=== PATIENT | female | born 1985 | race Caucasian/White ===

== ENCOUNTER 2016-06-14 15:01 | Emergency (ER) | payer SELFPAY ==
[~2016-06-14] VITALS: Ht 160 cm; Wt 70.3 kg
[2016-06-14 15:17] VITALS: BP 118/71
[2016-06-14] MEDS ORDERED: DICY10CA53 PO (15:47)
[2016-06-14] MEDS ORDERED: SULF1TAB24 PO (15:47)
[2016-06-14] MEDS ORDERED: PROM25TA10 PO (15:47)
[2016-06-14] MEDS ORDERED: MUPI22OI2 TP (15:47)
--- NOTE | 2016-06-14 15:47 | PHYS DOC ---
Past Medical History Past Medical History: No Pertinent History Past Surgical History: Other Additional Past Surgical Histo: UTERINE ABLATION Additional Information: 1 PPD Alcohol Use: None Drug Use: None Adult General Chief Complaint Chief Complaint: SKIN PROBLEM HPI HPI Patient is a 30 year old female presents emergency department for 2 reasons: 1. Skin rash that involves her bilateral lower extremities trunk and right upper extremity that began approximately 3 days ago. Patient states that she had a new tattoo within the past week. She states is been some redness and inflammation around the tattoo to her right thigh and then subsequently developed this secondary rash. Patient denies any history of recurrent skin infections. She denies antibiotic use within the past 90 days. 2. Nausea, vomiting and diarrhea that began yesterday. Patient denies any history gastrointestinal disease. Patient denies any known exposure to others with similar symptoms. Again, patient denies antibiotic use the past 90 days. She also denies hospitalization or foreign travel within the past 90 days. Patient denies hematemesis, hematochezia or abdominal pain. Review of Systems Review of Systems Constitutional: Denies fever or chills [] Eyes: Denies change in visual acuity, redness, or eye pain [] HENT: Denies nasal congestion or sore throat [] Respiratory: Denies cough or shortness of breath [] Cardiovascular: No additional information not addressed in HPI [] GI: Denies abdominal pain, nausea, vomiting, bloody stools or diarrhea [] : Denies dysuria or hematuria [] Musculoskeletal: Denies back pain or joint pain [] Integument: Denies rash or skin lesions [] Neurologic: Denies headache, focal weakness or sensory changes [] Endocrine: Denies polyuria or polydipsia [] Allergies Allergies Allergies Coded Allergies Type Severity Reaction Last Updated Verified morphine Allergy Mild NAUSEA,RASH 06/14/16 Yes Physical Exam Physical Exam Constitutional: Well developed, well nourished, no acute distress, non-toxic appearance. HENT: Normocephalic, atraumatic, bilateral external ears normal, oropharynx moist, no oral exudates, nose normal. Mucous membranes in the mouth and throat are healthy, pink and moist. Eyes: PERRLA, EOMI, conjunctiva normal, no discharge. [] Neck: Normal range of motion, no tenderness, supple, no stridor. [] Cardiovascular:Heart rate regular rhythm, no murmur Lungs & Thorax: Bilateral breath sounds clear to auscultation Abdomen: Abdomen is soft and nondistended. There are hyperactive bowel sounds in all 4 quadrants. There is no palpable defect to the abdominal wall or pulsatile mass. There is no focal area of tenderness. There is no rebound or guarding. Skin: Patient with large tattoo to the lateral aspect of her right thigh. There is significant amount of epidermal sloughing. There are follicular eruptions within the tattoo into bilateral lower extremities. There is some involvement with the lower anterior trunk and bilateral forearms. There is no mucocutaneous involvement. There are no other differing lesions such as petechial or purpuric patches. Back: No tenderness, no CVA tenderness. [] Extremities: No tenderness, no cyanosis, no clubbing, ROM intact, no edema. [] Neurologic: Alert and oriented X 3, normal motor function, normal sensory function, no focal deficits noted. [] Psychologic: Affect normal, judgement normal, mood normal. [] Current Patient Data Vital Signs Vital Signs Date Time Temp Pulse Resp B/P Pulse Ox O2 Delivery O2 Flow Rate FiO2 06/14/16 15:17 98.4 97 20 118/71 99 Room Air 98.4 EKG EKG [] Radiology/Procedures Radiology/Procedures [] Course & Med Decision Making Course & Med Decision Making Pertinent Labs and Imaging studies reviewed. (See chart for details) [] Dragon Disclaimer Dragon Disclaimer This electronic medical record was generated, in whole or in part, using a voice recognition dictation system. Departure Departure Impression: Primary Impression: Folliculitis Additional Impression: Gastroenteritis Disposition: 01 HOME, SELF-CARE Condition: GOOD Referrals: ROXANNE CORREA (PCP) Patient Instructions: Folliculitis, Viral Gastroenteritis, [id number] Additional Instructions: 1. Take the medication as prescribed. 2. Clear liquid diet for the next 24 hours. Avoid caffeinated beverages. Ideally , he should drink 10-12, 10 ounce glasses of non-caffeinated beverage daily while you're ill. A half and half mixture of water and Gatorade or Powerade will help replenish electrolytes in your body as well. You may also choose to drink Pedialyte. 3. Review the discharge instructions provided for reasons to return the emergency department. 4. Follow-up if you believe that either condition is worsening. Scripts Dicyclomine Hcl (Bentyl)10 Mg Capsule1 Cap PO TID abdominal cramping #21 CAP Prov:MARCELINA ESTRELLA 06/14/16 Promethazine Hcl 25 Mg Tablet1 Tab PO PRN Q6HRS PRN nausea and vomiting #20 TAB Prov:MARCELINA ESTRELLA 06/14/16 Mupirocin (Mupirocin Ointment)22 Gm Oint...g.1 Moustapha TP TID antibiotic ointment fortattoo #1 TUBE Prov:MARCELINA ESTRELLA 06/14/16 Sulfamethoxazole/Trimethoprim (Bactrim Ds Tablet)1 Each Tablet1 Each PO BID folliculitis #20 TAB Prov:MARCELINA ESTRELLA 06/14/16 Problem Qualifiers MARCELINA ESTRELLA Jun 14, 2016 15:47
== END 2016-06-14 15:55 | disposition home or self-care (01) ==
LOC: ER 15:01
DX: L73.9 Follicular disorder, unspecified (principal); K52.9 Noninfective gastroenteritis and colitis, unspecified; F17.210 Nicotine dependence, cigarettes, uncomplicated; Z88.5 Allergy status to narcotic agent
CPT/HCPCS: 99283

== ENCOUNTER 2018-02-17 21:54 | Emergency (ER) | payer SELFPAY ==
[~2018-02-17] VITALS: Ht 160 cm; Wt 81.6 kg
[~2018-02-17 21:54] MED LIST: DICY10CA53 PO; MUPI22OI2 TP; PROM25TA10 PO; SULF1TAB24 PO
[2018-02-17 22:03] VITALS: BP 131/79
[2018-02-17] MEDS ORDERED: DIPHTH,PERTUSS(ACELL),TET TOX 0.5 ML DISP.SYRIN. VAX IM ONE (23:15)
[2018-02-17] MEDS ORDERED: SULF1TAB24 PO (23:34)
--- NOTE | 2018-02-17 23:35 | PHYS DOC ---
Past Medical History Past Medical History: Endometriosis Past Surgical History: Tubal ligation, Other Additional Past Surgical Histo: UTERINE ABLATION, ENDOMETRIOSIS SX Additional Information: 1/2 pack/day Alcohol Use: None Drug Use: None Adult General Chief Complaint Chief Complaint: SKIN RASH/ABSCESS HPI HPI Patient is a 32 year old female who presents with bumps on her right axilla that she noted 3 days ago. Patient denies any fever. Review of Systems Review of Systems Constitutional: Denies fever or chills [] Musculoskeletal: Denies back pain or joint pain [] Integument: bumps on her right axilla Neurologic: Denies headache, focal weakness or sensory changes [] All other systems were reviewed and found to be within normal limits, except as documented in this note. Current Medications Current Medications Current Medications Medications (Trade) Dose Ordered Sig/Spike Start Time Stop Time Status Last Admin Dose Admin Diphtheria/ Tetanus/Acell Pertussis (Boostrix) 0.5 ml ONCE ONCE 02/17/18 23:15 02/17/18 23:16 DC Allergies Allergies Allergies Coded Allergies Type Severity Reaction Last Updated Verified morphine Allergy Mild NAUSEA,RASH 06/14/16 Yes Physical Exam Physical Exam Constitutional: Well developed, well nourished, no acute distress, non-toxic appearance. [] Skin: Warm, dry, right occipital with 3 non indurated areas approximately 0.5X0.5 centimeters each with erythema, the area is a firm and not fluctuant. The areas are warm tender to touch. Back: No tenderness, no CVA tenderness. [] Extremities: No tenderness, no cyanosis, no clubbing, ROM intact, no edema. [] Neurologic: Alert and oriented X 3, normal motor function, normal sensory function, no focal deficits noted. [] Psychologic: Affect normal, judgement normal, mood normal. [] Current Patient Data Vital Signs Vital Signs Date Time Temp Pulse Resp B/P (MAP) Pulse Ox O2 Delivery O2 Flow Rate FiO2 02/17/18 22:03 98.3 65 16 131/79 (96) 99 98.3 EKG EKG [] Radiology/Procedures Radiology/Procedures [] Course & Med Decision Making Course & Med Decision Making Pertinent Labs and Imaging studies reviewed. (See chart for details) Patient has 3 abscesses with cellulitis on the right axilla that are not ready to be drained. Tetanus was updated. Warm compresses recommended to the area. Discharged on Bactrim. Instructed not to shave the right axilla until the infection has cleared up. Follow-up with PCP in 1-2 weeks. Andrews Disclaimer Andrews Disclaimer This electronic medical record was generated, in whole or in part, using a voice recognition dictation system. Departure Departure Impression: Primary Impression: Abscess of axilla, right Additional Impression: Cellulitis of axilla, right Disposition: 01 HOME, SELF-CARE Condition: STABLE Referrals: ROXANNE CORREA (PCP) follow up in 1-2 weeks Patient Instructions: Abscess, [id number], Cellulitis, [id number] Additional Instructions: You were evaluated in the emergency room for abscess with cellulitis in the right axilla. Take the prescribed antibiotics until completed. Apply warm compresses to the area 2-3 times a day. Follow-up with your doctor in 1-2 weeks. Come back to the ED at any point symptoms worsen. Scripts Sulfamethoxazole/Trimethoprim (BACTRIM DS TABLET) 1 Each Tablet 1 TAB PO BID, #20 TAB Prov: BARRY NINA APRN 02/17/18 Problem Qualifiers BARRY NINA RHIT Feb 17, 2018 23:35
== END 2018-02-17 23:25 | disposition home or self-care (01) ==
LOC: ER 21:54
DX: L02.411 Cutaneous abscess of right axilla (principal); L03.111 Cellulitis of right axilla; F17.200 Nicotine dependence, unspecified, uncomplicated; Z98.51 Tubal ligation status; Z88.5 Allergy status to narcotic agent
CPT/HCPCS: 99283